=== PATIENT | male | born 2000 | race African-American/Black ===

== ENCOUNTER 2021-06-17 22:59 | Emergency (ER) | payer SELFPAY ==
[2021-06-17] MEDS ORDERED: Boostrix 0.5 ML (Tdap) VIAL ONE (23:02)
[2021-06-18 00:16] LABS: Bilirubin Negative (Negative); Blood, Urine Negative (Negative); Clarity Clear (Clear); Glucose, Urine (Dipstick) Normal (Negative); Ketone, Urine Negative (Negative); Leukocyte Negative Leu/uL (Negative); Nitrite Negative (Negative); Protein, Urine (Dipstick) Negative (Neg-Trace); Specific Gravity, Urine 1.007 (1.002-1.036); Urobilinogen Normal mg/dL (Less than 2)
[2021-06-18 00:25] LABS: Amphetamine Not Detected (NotDetected); Barbiturates Screen Not Detected (NotDetected); Benzodiazepine Screen Not Detected (NotDetected); Cocaine Metabolite Screen Not Detected (NotDetected); Methadone Not Detected (NotDetected); Methamphetamine Not Detected (NotDetected); Opiate Screen Not Detected (NotDetected); Oxycodone Screen Not Detected (NotDetected); Phencyclidine (PCP) Not Detected (NotDetected); THC/Cannabinoid Screen Not Detected (NotDetected); Tricyclic Screen Not Detected (NotDetected)
[2021-06-18 00:33] LABS: #Basophils 0.1 thou/uL (0.0-0.2); #Eosinphils 0.1 thou/uL (0.0-0.7); #Monocytes 0.6 thou/uL (0.11-0.59); #Neutrophils 4.9 thou/uL (1.40-6.50); %Eosinophils 1.4 % (0.0-10.0); %Lymphocytes 26.1 % (21.0-51.0); %Monocytes 7.6 % (0.0-10.0); %Neutrophils 63.9 % (42.0-75.0); Hemoglobin 17.6 g/dL (14.0-18.0); Mean Corpuscular HGB CONC 35.2 g/dL (32.0-36.0); Mean Corpuscular Hemoglobin 33.1 pg (27.0-31.0); Mean Platelet Volume 6.5 fL (7.4-10.4); Platelet Count 414 thou/uL (130-400); RBC Distribution Width 12.3 % (11.5-14.5); White Blood Cell (WBC) Count 7.7 thou/uL (4.8-10.8)
[2021-06-18 00:56] LABS: ALT (SGPT) 39 U/L (8-55); AST (SGOT) 33 U/L (5-34); Acetaminophen Less than 6.0 mcg/mL (10.0-30.0); Albumin 5.1 g/dL (3.5-5.0); Alcohol 256 mg/dL (Less than 10); Alkaline Phosphatase 102 U/L (40-110); Anion Gap 18 mmol/L (10-20); BUN (Urea Nitrogen) 17 mg/dL (8.9-20.6); Bilirubin, Total 0.3 mg/dL (0.2-1.2); Calc. Creatinine Clearance 0 mL/min (70-130); Calcium 9.9 mg/dL (7.8-10.44); Carbon Dioxide 19 mmol/L (22-29); Chloride 111 mmol/L (98-107); Globulin 3.5 g/dL (2.4-3.5); Glucose 94 mg/dL (70-105); Protein, Total 8.6 g/dL (6.0-8.3); Salicylate Less than 8.0 mg/dL (15.0-30.0); Sodium 144 mmol/L (136-145)
[2021-06-18] MEDS ORDERED: diphenhydrAMINE 25 MG CAP ONE (00:58)
[2021-06-18] MEDS ORDERED: Acetaminophen 500 MG TAB ONE (00:58)
[2021-06-18] MEDS ORDERED: Cephalexin 250 MG CAP ONE ×2 (13:18→20:00)
[2021-06-18] MEDS ORDERED: Ketorolac Tromethamine 30 MG/ML VIAL ONE (13:20)
[2021-06-19] MEDS ORDERED: Ketorolac Tromethamine 10 MG TAB PO SCH (17:30)
== END 2021-06-21 10:25 ==
LOC: ERS 22:59
DX: S81.832A Puncture wound without foreign body, left lower leg, initial encounter (principal); F17.210 Nicotine dependence, cigarettes, uncomplicated; F17.290 Nicotine dependence, other tobacco product, uncomplicated; Z23 Encounter for immunization
CPT/HCPCS: 36415; 80053; 80306; 80307; 81003; 84443; 85025; 90471; 90715; 96372; J1885

== ENCOUNTER → 2021-08-08 | Emergency (ER) | payer SELFPAY | LOC: ERS 14:05 | DX: Z53.21 Procedure and treatment not carried out due to patient leaving prior to being seen by health care provider (principal) ==

== ENCOUNTER 2023-06-08 23:33 | Emergency (ER) | payer BC ==
[2023-06-09 02:51] LABS: SARS-CoV-2 NAA Rapid Test Not Detected (NotDetected)
[2023-06-09] MEDS ORDERED: Ibuprofen 800 MG TAB ONE (03:49)
== END 2023-06-09 03:51 | disposition home or self-care (01) ==
LOC: ERS 23:33
DX: B34.9 Viral infection, unspecified (principal)
CPT/HCPCS: 99284